=== PATIENT | male | born 1945 | race Asian ===

== ENCOUNTER 2017-01-16 03:10 | Emergency (ER) | payer OTHER ==
[~2017-01-16] VITALS: Ht 160 cm; Wt 65.3 kg
[2017-01-16 03:18] VITALS: BP 137/94
--- NOTE | 2017-01-16 03:25 | NUR ---
PT TAKEN TO BED 11
--- NOTE | 2017-01-16 03:30 | NUR ---
71Y/M PRESENTS TO ER C/O HIGH BLOOD PRESSURE. PT STATES HE TOOK HIS B/P AT HOME AND IT WAS HIGH AND STATES HE HASNT SLEPT FOR 5 DAYS. PT IS RETIRED, LIVES AT HOME W/ SONS. AA&[id number]. SITTING BED, ER NOTIFIED.
--- NOTE | 2017-01-16 03:33 | NUR ---
Dr. Carl evaluating patient at bedside.
--- NOTE | 2017-01-16 03:46 | NUR ---
Patient discharged with v/s stable. Written and verbal after care instructions given and explained. Patient alert, oriented and verbalized understanding of instructions. Ambulatory with steady gait. All questions addressed prior to discharge. ID band removed. Patient advised to follow up with PMD. Rx of ambien 5mg given. Patient educated on indication of medication including possible reaction and side effects. Opportunity to ask questions provided and answered.
== END 2017-01-16 03:46 | disposition home or self-care (01) ==
LOC: MED 03:10
DX: G47.00 Insomnia, unspecified (principal); R03.0 Elevated blood-pressure reading, without diagnosis of hypertension
CPT/HCPCS: 99283